=== PATIENT | male | born 1985 | race Caucasian/White ===

== ENCOUNTER 2018-11-09 17:39 | Emergency (ER) | payer SELFPAY ==
[2018-11-09 17:40] VITALS: BP 120/74; PULSE 97; RESP 18; TEMP 36.2; O2SAT 98; BMI 21.5
--- NOTE | 2018-11-09 17:57 | ED.DCSUM_ITS ---
- ER Visit Summary Date of Service: 11/09/18 Chief Complaint: Low back pain History of Present Illness: The patient is a 33 M who started having low back pain earlier in the week after shoveling. He got worse yesterday. He gets worse when he moves. Is in the lumbar region and does not radiate. Denies any bowel or bladder incontinence. No numbness or tingling or radiation down his legs. He states he did injure his back earlier this year. He has been trying Aleve at home without any relief. Physical Examination: Vital signs reviewed. Back exam reveals tenderness in the left more paraspinal area. There is no midline tenderness. No step-offs. His neurologic exam including reflexes is normal Test Results: None performed Emergency Department Course and Treatment: This is likely a muscular injury. He has no bony tenderness. I do not feel he requires any x-rays. Patient will be treated with Norflex and Toradol. I will give him Dolobid and Flexeril for home. He will follow-up with his PCP Treatment Plan: [] Disposition: Discharge Impression: Lumbar strain This note was generated with [employer] dictation software. It may contain incorrect words, spelling, and punctuation that were not noted in review of the chart prior to signing ED Disposition - Plan for ED Patient: Referrals: NOT,DEFINED [Primary Care Provider] -
--- NOTE | 2018-11-09 17:58 | ED.DEP ---
ED Disposition - Plan for ED Patient: Disposition: Home or Assisted Living Instructions: BACK AND NECK PAIN, General Prescriptions: Diflunisal [Dolobid] 500 mg PO TID #20 tab Prescription Printed cycloBENZAPRine HCl [Flexeril] 10 mg PO TID PRN #20 tab PRN Reason: Muscle Spasm Prescription Printed Referrals: NOT,DEFINED [Primary Care Provider] -
[2018-11-09] MEDS: Ketorolac 60 MG/2 ML Vial IM (18:07)
[2018-11-09] MEDS: Orphenadrine 60 MG/2 ML Ampul IM (18:07)
== END 2018-11-09 18:38 | disposition home or self-care (01) ==
LOC: ED 18:17
PROVIDERS: Emergency Provider Emergency Medicine
DX: S39.012A Strain of muscle, fascia and tendon of lower back, initial encounter (principal); X58.XXXA Exposure to other specified factors, initial encounter; Y93.H1 Activity, digging, shoveling and raking; Z72.0 Tobacco use
CPT/HCPCS: 96372; 99282